=== PATIENT | male | born 1960 | race Caucasian/White ===

== ENCOUNTER → 2019-11-21 08:15 | Day surgery (SDC) | payer MEDICARE, SELFPAY ==
[2019-11-21 08:35] VITALS: BMI 43.7
[2019-11-21 08:39] VITALS: BP 166/94; PULSE 80; RESP 20; TEMP 36.6; O2SAT 95
== END ==
PROVIDERS: Family Provider Internal Medicine; PCP Internal Medicine; Visit Provider Nurse Practitioner Family
DX: C18.2 Malignant neoplasm of ascending colon (principal)
CPT/HCPCS: 96368; 96523; J1642

== ENCOUNTER 2025-04-29 09:45 | Emergency (ER) | payer MEDICARE, SELFPAY ==
[2025-04-29 09:46] VITALS: BP 144/75; PULSE 81; RESP 16; TEMP 36.7; O2SAT 97; BMI 39.1
--- OUTSIDE RECORDS SUMMARY | 2025-04-29 09:50 | XMS_ITS | Encounter Summary ---
Author Organization [facility] Address [address] [place] [address] Care Team Providers Care Archeologist Classical Name Role Phone [facility], External Provider Primary Care Provider +1- [phone] Encounter Details Date Type Department Care Team (Late st Contact Info) Description 09/21/[address] 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
--- OUTSIDE RECORDS SUMMARY | 2025-04-29 09:50 | XMS_ITS | Encounter Summary ---
Author Organization [facility] Address [address] [place] [address] Care Team Providers Care Java Architect Name Role Phone [facility], External Provider Primary Care Provider +1- [phone] Reason for Referral * Outpatient Services (Routine) - Closed Specialty Diagnoses / Procedures Referred By Contkevin t Referred To Contact Cardiology Diagnoses Encounter for loop recorder at end of battery life Procedures CL EVENT RECORDER REMOVAL Avril Delarosa MD [address] [place] [address] Phone: tel: fax: [facility] Electrophysiology Lab [address] [place] [address] Referral ID Status Reason Start Date Expiration Date Visits Re quested Visits Authorized [id number] Closed 12/12/2013 01/12/2015 1 1 PERSON Encounter Details Date Type Department Care Team (Late st Contact Info) Description 12/12/2013 Ancillary Orders [facility] Cardiology- [place] [address] [place] [address] Avril Delarosa MD [address] [place] [address] Encounter for loop recorder at end of battery life (Primary Dx) Social History Tobacco Use Types Packs/Day Years Used Date Smoking Tobacco: Former Cigarettes Q uit: 12/31/2009 Smokeless Tobacco: Never Alcohol Use Standard Drinks/Week Comments Not Asked 0 (1 standard drink = 0.6 oz pur e alcohol) Sex and Gender Information Value Date Recorded Sex Assigned at Not on file 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 After Versed and fentanyl, local anesthetics was given and the incision was made parallel to the old scar. The pocket was opened carefully with acute and dull dissection. Suture was cut and the device was removed from the pocket. Pocket was irrigated with antibiotic solution after hemostasis achieved. Pocket was then closed with two layers. We used 2-0 Vicryl for first layer and staple gun for skin layers. Throughout the procedure, patient's hemodynamics and oxygenation stable. No complication noticed. Totally received 1 mg Versed and 25 mcg fentanyl. No complication noticed. Minimal bleeding. FINAL SUMMARY: Loop recorder removal. SCL/ama - transcribed in Epic - Procedure Note Avril Delarosa MD - 01/10/2014 LOOP RECORDER REMOVAL: DESCRIPTION OF PROCEDURE: After informed consent obtained, the patientsent to the EP lab in a postabsorptive state. After Versed and fentanyl,local anesthetics was given and the incision was made parallel to the oldscar. The pocket was opened carefully with acute and dull dissection.Suture was cut and the device was removed from the pocket. Pocket wasirrigated with antibiotic solution after hemostasis achieved. Pocket wasthen closed with two layers. We used 2-0 Vicryl for first layer andstaple gun for skin layers. Throughout the procedure, patient's hemodynamics and oxygenation stable.No complication noticed. Totally received 1 mg Versed and 25 mcgfentanyl. No complication noticed. Minimal bleeding. FINAL SUMMARY: Loop recorder removal. SCL/ama - transcribed in Epic - us Avril Delarosa MD FLUOROSCOPY ORDERABLES Final Result documented in this encounter Visit Diagnoses Diagnosis Encounter for loop recorder at end of battery life- Primary Unspecified cardiac device in situ (ILR)- Primary Unspecified cardiac device in situ Encounter for loop recorder at end of battery life documented in this encounter Care Teams Java Architect Relationship Specialty Start Date End Date [facility], External Provider [address] [place] [id number] PCP - General Family Practice 01/04/14 documented as of this encounter
--- OUTSIDE RECORDS SUMMARY | 2025-04-29 09:51 | XMS_ITS | Clinical Summary ---
Author Organization [facility] Address [address] [place]: [place] [address] Care Team Providers Care Protozoology Teacher Name Role Phone [facility], External Provider Primary Care Provider +1- [phone] Allergies No known active allergies Active Problems Problem Noted Date Diagnosed Date Unspecified cardiac device in situ (ILR) 012 Hyperlipidemia 07/29/2011 Syncope and collapse 07/29/2011 Family History Medical History Relation Name Comments Heart Disease Father Relation Name Status Comments Father Alive Mother Social History Tobacco Use Types Packs/Day Years Used Date Smoking Tobacco: Former Cigarettes Q uit: 12/31/2009 Smokeless Tobacco: Never Alcohol Use Standard Drinks/Week Comments No 0 (1 standard drink = 0.6 oz pur e alcohol) Sex and Gender Information Value Date Recorded Sex Assigned at Not on file 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 Gender Identity Not on file Sexual Orientation Not on file Plan of Treatment Health Maintenance Due Date Last Done Comments DTAP/TDAP/TD VACCINES (1 - Tdap) 1977 COLORECTAL SCREENING 2003 Colorectal Cancer Screening 2003 FIT-DNA Q 3 years 2003 FIT/FOBT Q 1 year 2003 Flex Sig/CT Colonography Q 5 years 2003 PNEUMOCOCCAL VACCINE 50+ YEARS (1 of 1 - PCV) 02/10/20 08 ZOSTER VACCINE (1 of 2) 02/10/2008 INFLUENZA VACCINE (#1) 2024 RSV VACCINE (60+ or ) (1 - 1-dose 75+ series) 2033 Care Teams Protozoology Teacher Relationship Specialty Start Date End Date [facility], External Provider [address] [place] [id number] PCP - General Family Practice 01/04/14
--- OUTSIDE RECORDS SUMMARY | 2025-04-29 09:51 | XMS_ITS | Encounter Summary ---
Author Organization [facility] Address [address] [place] [address] Care Team Providers Care Nicker Name Role Phone [facility], External Provider Primary Care Provider +1- [phone] Encounter Details Date Type Department Care Team (Late st Contact Info) Description 07/29/2011 Ancillary Orders [facility] Cardiology- [place] [address] [place] [address] Avril Delarosa MD [address] [place] [address] Syncope and collapse Social History Tobacco Use Types Packs/Day Years Used Date Smoking Tobacco: Former Cigarettes Q uit: 12/31/2009 Smokeless Tobacco: Never Alcohol Use Standard Drinks/Week Comments Not Asked 0 (1 standard drink = 0.6 oz pur e alcohol) Sex and Gender Information Value Date Recorded Sex Assigned at Not on file 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 - 08/26/2011 8:25 AM CDT TYPE OF PROCEDURE: Tilt table test. PRE-PROCEDURE DIAGNOSES: Recurrent syncope of unclear etiology. DESCRIPTION OF PROCEDURE: After informed consent obtained the patient sent to the tilt table room for the test. At 10 to 15 minutes 0 degree to establish the baseline. His baseline is about 70 beats per minute sinus rhythm. Blood pressure is about 118/120 systolically and then diastolic is 74 to 78 mmHg. Oxygenation is above 90% throughout the procedure. Immediately after tilt table patient's blood pressure is 113/70, heart rate is 80 beats per minute regular rhythm. No symptom at which time his heart rate gradually increased up to around 90 beats per minute and the blood pressure decreased slightly to about 105 mmHg, diastolic is around 75 to 77 mmHg. At 25 minutes the patient is still asymptomatic and everything stable so we him start to cough and valsalva trying to do the same when he normally would pass out, his heart rate would increase to about 100 to 110 beats per minute but there is no significant drop in blood pressure. At 29 minutes patient still asymptomatic so we put patient back to 0 degree at 30 minutes and patient back to normal blood pressure and heart rate. FINAL SUMMARY: Negative tilt table test. Normal electric cardiovascular response to gravity. /[facility] - transcribed in Epic - Procedure Note Avril Delarosa MD - 08/26/2011 TYPE OF PROCEDURE: Tilt table test. PRE-PROCEDURE DIAGNOSES: Recurrent syncope of unclear etiology. DESCRIPTION OF PROCEDURE: After informed consent obtained the patient sentto the tilt table room for the test. At 10 to 15 minutes 0 degree toestablish the baseline. His baseline is about 70 beats per minute sinusrhythm. Blood pressure is about 118/120 systolically and then diastolicis 74 to 78 mmHg. Oxygenation is above 90% throughout the procedure.Immediately after tilt table patient's blood pressure is 113/70, heartrate is 80 beats per minute regular rhythm. No symptom at which time hisheart rate gradually increased up to around 90 beats per minute and theblood pressure decreased slightly to about 105 mmHg, diastolic is [id number] to 77 mmHg. At 25 minutes the patient is still asymptomatic andeverything stable so we him start to cough and valsalva trying to do thesame when he normally would pass out, his heart rate would increase toabout 100 to 110 beats per minute but there is no significant drop inblood pressure. At 29 minutes patient still asymptomatic so we putpatient back to 0 degree at 30 minutes and patient back to normal bloodpressure and heart rate. FINAL SUMMARY: Negative tilt table test. Normal electric cardiovascularresponse to gravity. /[facility] - transcribed in Epic - us Avril Delarosa MD ELECTROPHYSIOLOGY ORDERABLES Final Result [facility] documented in this encounter Visit Diagnoses Diagnosis Syncope and collapse Syncope and collapse documented in this encounter Care Teams Nicker Relationship Specialty Start Date End Date [facility], External Provider [address] [place] [id number] PCP - General Family Practice 01/04/14 documented as of this encounter
--- OUTSIDE RECORDS SUMMARY | 2025-04-29 09:51 | XMS_ITS | Clinical Summary ---
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 Gender Identity Not on file Sexual Orientation Not on file Occupation Industry Job Start Date Job End Date Not on file Not on file Not on file Not on file Last Filed Vital Signs Vital Sign Reading Time Taken Comments Blood Pressure 137/95 01/04/2014 2:10 PM BUNCH BREAKER Pulse 85 01/04/2014 10:50 AM BUNCH BREAKER Temperature 36.5 C (97.7 F) 01/04/2014 10:50 AM BUNCH BREAKER Respiratory Rate 19 01/04/2014 2:10 PM BUNCH BREAKER Oxygen Saturation 95% 01/04/2014 2:10 PM BUNCH BREAKER Inhaled Oxygen Concentration - - Weight 138.3 kg (304 lb 12.6 oz) 2013 10:50 AM BUNCH BREAKER Height 180.3 cm (5' 11 ) 01/04/2014 10: 50 AM BUNCH BREAKER Body Mass Index 42.51 01/04/2014 10:50 AM BUNCH BREAKER Plan of Treatment Health Maintenance Due Date [...] ) (1 - 1-dose 75+ series) 2033 Advance Directives For more information, please contact: [phone] * Full Code (Latest Code Status on File) Date Activated Date Inactivated Comments 01/04/2014 9:56 AM 01/04/2014 5:11 PM * Full Code Date Activated Date Inactivated Comments 08/25/2011 7:52 AM 08/25/2011 3:58 PM Care Teams Filling Hauler Relationship Specialty Start Date End Date [facility], External Provider [address] [place] [id number] PCP - General Family Practice 01/04/14
--- OUTSIDE RECORDS SUMMARY | 2025-04-29 09:51 | XMS_ITS | Data Portability ---
Author Organization [facility] Address [address] [address] Care Team Providers Care Pocket Setter Name Role Phone NJ BHAKTA Primary Care Provider Unavailabl e Assessment No assessment recorded. Plan of Treatment Reminders Order Date Submit Date Provider Last Modified By Organization Details Last Modified Time Details Appointments RECHECK 15 2024 08:45A Anthony Bhakta MD Not available Not available Not available Lab CMP, serum or plasma [address] Lab, [address], [address], 11/07/2024 14:45:16 HbA1c (hemoglob in A1c), blood 2024 025 [email or web address] [facility] ([facility]), [address] [place] [address], [address], 11/07/2024 14:45:16 CBC w/ auto diff [address] ([facility]), 5 [place], [address], 11/07/2024 14:45:16 lipid panel, blood [address] Lab, [address], [address], 11/07/2024 14:45:16 PSA, serum or plasma 2023 024 [facility], [address] [facility] [address], [address] [place], [address], 06/14/2024 03:50:26 lipid panel, blood 2023 024 [facility] Lab, [address] [facility], [address], [place], [address], 06/13/2024 09:57:48 HbA1c (hemoglob in A1c), blood 2023 024 [facility] ([facility]), [address] [place], [address], 06/13/2024 09:45:59 CBC 2023 024 Critical access hospital Lab, [address] [facility], [facility] 1, [place], [address], 06/13/2024 09:42:39 HbA1c (hemoglob in A1c), blood [address] ([facility]), [address] [place], [address], 12/13/2023 13:57:17 BMP, serum or plasma [address] Lab, [address] [place] [address], [facility] 1, [place], [address], 12/13/2023 13:57:17 Referral None recorded. Procedures None recorded. Surgeries None recorded. Imaging None recorded. Medication Orders Rybelsus 7 mg tablet 2024 025 [facility]53008, [address], [place], [place], [id number], 11/07/2024 14:45:25 Farxiga 10 mg tablet 2024 025 [facility] #28482, [address], [place], [place], [id number], 11/07/2024 14:45:26 losartan 25 mg tablet 2024 025 [facility] #39222, [address], [place], [place], [id number], 11/07/2024 14:45:26 metformin ER 500 mg tablet,ex tended release 24 hr 2024 025 [facility] #45191, [address], [place], [place], [id number], 11/07/2024 14:45:24 atorvasta tin 20 mg tablet 2024 025 [facility] #77746, [address], [place], [place], [id number], 11/07/2024 14:45:26 cetirizin e 10 mg tablet 2024 025 [facility] #39475, [address], [place], [place], [id number], 11/07/2024 14:45:23 Augmentin 875 mg-125 mg tablet 2023 [facility]24 [id number] [address], [place], [place], [id number], 03/07/2024 13:48:09 Patient TargetsNo targets recorded. Patient Instructions Encounter Date Encounter Id Patient Instructions Last Modified By Organization Details Last Modified Time 12/14/2023 [id number] holidays have sugar slightly higher works on diet weights 261 at home rybelsus has dramatically dropped sugar from previous bp controlled [email or web address] Not available 12/14/2023 09:13:19 06/13/2024 [id number] lipids, a1c, psa missed; renal function normal watery eyes; will try antihistamine bp slightly high today; encouraged to check more at home [email or web address] Not available 06/13/2024 09:13:58 Reason for Referral None Reported. Results Created Date Observation Date Name Description Value Unit Range Abnormal Flag Note LastModifiedBy Organization Detail LastModifiedTime 12/07/19 24 12/07/2023 BMP (MALE ) glucose 157.0 mg/dL 60.0-9 9.0 high Not Available [facility] [address] [facility] 1, [place], [address], 12/07/2023 11:23:11 12/07/19 24 12/07/2023 BMP (MALE ) BUN (blood urea nitrogen) 21.0 mg/dL 10.0-2 6.0 Not Available [facility] [address] [facility] 1, [place], [address], 12/07/2023 11:23:11 12/07/19 24 12/07/2023 BMP (MALE ) creatinine (serum) 0.7 mg/dL 0.4-1. 5 Not Available [facility] [address] [facility] 1, [place], [address], 12/07/2023 11:23:11 12/07/19 24 12/07/2023 BMP (MALE ) BUN/creatini ne ratio 30.43 ratio Not Available [facility] [address] [facility] 1, [place], [address], 12/07/2023 11:23:11 12/07/19 24 12/07/2023 BMP (MALE ) calcium 9.4 mg/dL 8.4-10 .5 Not Available [facility] [address] [facility] 1, [place], [address], 12/07/2023 11:23:11 12/07/19 24 12/07/2023 BMP (MALE ) sodium 141.0 mmol/ L 136.0- 145.0 Not Available [facility] [address] [facility] 1, [place], [address], 12/07/2023 11:23:11 12/07/19 24 12/07/2023 BMP (MALE ) potassium 4.2 mmol/ L 3.5-5. 1 Not Available [facility] [address] [address], [place], [address], 12/07/2023 11:23:11 12/07/19 24 12/07/2023 BMP (MALE ) chloride 111.0 mmol/ L 98.0-1 10.0 abnormal Not Available [facility] [address] [address], [place], [address], 12/07/2023 11:23:11 12/07/19 24 12/07/2023 BMP (MALE ) C02 25.0 mmol/ L 22.0-3 1.0 Not Available [facility] [address], [address], 12/07/2023 11:23:11 12/07/19 24 12/07/2023 HbA1c (hemo globi n A1c), blood HbA1c 6.6 Not Available [facility] ([facility]) [address] [place], [address], 12/07/2023 08:55:04 06/06/20 24 06/06/2024 CMP (MALE ) glucose 154.0 mg/dL 60.0-9 9.0 high Not Available [facility] [address], [address], 06/06/2024 09:46:17 06/06/20 24 06/06/2024 CMP (MALE ) BUN (blood urea nitrogen) 13.0 mg/dL 10.0-2 6.0 Not Available [facility] [address], [address], 06/06/2024 09:46:17 06/06/20 24 06/06/2024 CMP (MALE ) creatinine (serum) 0.7 mg/dL 0.4-1. 5 Not Available [facility] [address] [facility] 1, [place], [address], 06/06/2024 09:46:17 06/06/20 24 06/06/2024 CMP (MALE ) BUN/creatini ne ratio 20.00 ratio Not Available [facility] [address] [facility] 1, [place], [address], 06/06/2024 09:46:17 06/06/20 24 06/06/2024 CMP (MALE ) eGFR calculated 130.6 Not Available [facility] [address] [facility] 1, [place], [address], 06/06/2024 09:46:17 06/06/20 24 06/06/2024 CMP (MALE ) total protein 7.1 g/dL 6.0-8. 5 Not Available [facility] [address] [facility] 1, [place], [address], 06/06/2024 09:46:17 06/06/20 24 06/06/2024 CMP (MALE ) total bilirubin 0.7 mg/dL 0.2-1. 3 Not Available [facility] [address] [facility] 1, [place], [address], 06/06/2024 09:46:17 06/06/20 24 06/06/2024 CMP (MALE ) albumin 4.3 g/dL 3.5-5. 5 Not Available [facility] [address] [facility] 1, [place], [address], 06/06/2024 09:46:17 06/06/20 24 06/06/2024 CMP (MALE ) globulin 2.8 calc Not Available [facility] [address] [facility] [address] 1, [place], [address], 06/06/2024 09:46:17 06/06/20 24 06/06/2024 CMP (MALE ) AST (SGOT) 19.0 U/L 0.0-46 .0 Not Available [facility] [address] [facility], [place], [address], 06/06/2024 09:46:17 06/06/20 24 06/06/2024 CMP (MALE ) altv (SGPT) 22.0 U/L 13.0-6 9.0 normal Not Available [facility] [address] [facility] 1, [place], [address], 06/06/2024 09:46:17 06/06/20 24 06/06/2024 CMP (MALE ) A/G ratio 1.5 ratio Not Available [facility] [address] [facility] 1, [place], [address], 06/06/2024 09:46:17 06/06/20 24 06/06/2024 CMP (MALE ) ALP phos 79.0 U/L 30.0-1 40.0 normal Not Available [facility] [address] [facility] 1, [place], [address], 06/06/2024 09:46:17 06/06/20 24 06/06/2024 CMP (MALE ) calcium 9.4 mg/dL 8.4-10 .5 Not Available [facility] [address] [facility] 1, [place], [address], 06/06/2024 09:46:17 06/06/20 24 06/06/2024 CMP (MALE ) sodium 139.0 mmol/ L 136.0- 145.0 Not Available [facility] [address] [facility] 1, [place], [address], 06/06/2024 09:46:17 06/06/20 24 06/06/2024 CMP (MALE ) potassium 4.2 mmol/ L 3.5-5. 1 Not Available [facility] [address] [facility] 1, [place], [address], 06/06/2024 09:46:17 06/06/20 24 06/06/2024 CMP (MALE ) chloride 110.0 mmol/ L 98.0-1 10.0 normal Not Available [facility] [address] [facility] 1, [place], [address], 06/06/2024 09:46:17 06/06/20 24 06/06/2024 CMP (MALE ) C02 23.0 mmol/ L 22.0-3 1.0 Not Available [facility] [address] [facility] 1, [place], [address], 06/06/2024 09:46:17 06/06/20 24 06/06/2024 CMP (MALE ) anion gap 6.0 calc Not Available [facility] [address] [facility] 1, [place], [address], 06/06/2024 09:46:17 06/06/20 24 06/06/2024 CMP (MALE ) osmolality 290.0 calc Not Available [facility] [address] [facility] 1, [place], [address], 06/06/2024 09:46:17 06/06/20 24 06/08/2024 ALBUM IN, RANDO M URINE W/CRE ATINI NE creatinine, random urine 56 mg/dL 20-320 normal Not Available [facility] [employer] [address] [address] [place], [address], 06/08/2024 12:53:16 06/06/20 24 06/08/2024 ALBUM IN, RANDO M URINE W/CRE ATINI NE albumin, urine 0.2 mg/dL see note: normal Refer ence Range : Refer ence Range Not estab lishe d Not Available [facility] [address] [address] [place], [address], 06/08/2024 12:53:16 06/06/20 24 06/08/2024 ALBUM IN, RANDO M URINE W/CRE ATINI NE albumin/crea tinine ratio, random urine 4 mg/g_ creat <30 normal The ADA defin es abnor malit ies in album in excre tion as follo ws: Album inuri a Categ ory Resul t (mg/g creat inine ) Mary l to Mildl y incre ased <30 Moder ately incre ased 30-29 9 Sever vandana incre ased > OR = 300 The ADA recom mends that at least two of three speci mens colle cted withi n a 3-6 month perio d be abnor mal befor e consi rohini g a patie nt to be withi n a diagn ostic categ ory. Not Available [facility] [address] [place], [address], 06/08/2024 12:53:16 06/13/20 24 06/13/2024 CBC WBC 9.5 x10 4.5-10 .5 Not Available [facility] [address] [address], [place], [address], 06/13/2024 09:42:39 06/13/20 24 06/13/2024 CBC RBC 5.10 x10 4.30-5 .90 Not Available [facility] 805 [facility] 1, [place], [address], 06/13/2024 09:42:39 06/13/20 24 06/13/2024 CBC HGB 16.0 g/dL 13.5-1 8.0 Not Available [facility] 805 [facility] 1, [place], [address], 06/13/2024 09:42:39 06/13/20 24 06/13/2024 CBC HCT 46.1 % 35.0-6 0.0 Not Available [facility] [address], [place], [address], 06/13/2024 09:42:39 06/13/20 24 06/13/2024 CBC MCV 90.3 fL 80.0-9 9.9 Not Available [facility] [address] [facility] [address] 1, [place], [address], 06/13/2024 09:42:39 06/13/20 24 06/13/2024 CBC MCH 31.3 pg 27.0-3 2.0 Not Available [facility] [address] [facility] 1, [place], [address], 06/13/2024 09:42:39 06/13/20 24 06/13/2024 CBC MCHC 34.6 g/dL 32.0-3 6.0 Not Available [facility] [address] [facility] [address] 1, [place], [address], 06/13/2024 09:42:39 06/13/20 24 06/13/2024 CBC RDW 12.9 % 11.5-1 4.5 Not Available [facility] [address] [facility] 1, [place], [address], 06/13/2024 09:42:39 06/13/20 24 06/13/2024 CBC plt 200.1 x10 150.0- 451.0 Not Available [facility] [address] [facility] [address] [facility] 1, [place], [address], 06/13/2024 09:42:39 06/13/2006/13/2024 CBC lymphocytes % 17.5 % 20.0-5 0.0 low Not Available [facility] [address] [facility] 1, [place], [address], 06/13/2024 09:42:39 08/12/06/13/2024 CBC granulcytes % 72.7 % 30.0-7 0.0 high Not Available [facility] [address] [facility], [place], [address], 06/13/2024 09:42:39 06/13/20 24 06/13/2024 CBC monocytes % 5.6 % 2.0-16 .0 Not Available [facility] [address] [facility], [place], [address], 06/13/2024 09:42:39 06/13/20 24 06/13/2024 CBC granulcytes# 6.9 x10 Not Maria Del Carmen ilable [facility] [address] [address], [place], [address], 06/13/2024 09:42:39 06/13/20 24 06/13/2024 CBC lymphocytes # 1.7 x10 Not Available [facility] [address] [facility], [place], [address], 06/13/2024 09:42:39 06/13/20 24 06/13/2024 CBC monocytes # 0.5 x10 Not Avai lable [facility] [address] [address], [place], [address], 06/13/2024 09:42:39 06/13/2006/13/2024 LIPID PROFI LE (MALE ) cholesterol 190.0 mg/dL 0.0-20 0.0 Not Available [facility] [address] [facility], [place], [address], 06/13/2024 09:57:47 06/13/20 24 06/13/2024 LIPID PROFI LE (MALE ) trig 140.0 mg/dL 0.0-15 0.0 Not Available [facility] 805 [facility] [address], [address], 06/13/2024 09:57:47 06/13/20 24 06/13/2024 LIPID PROFI LE (MALE ) HDL - direct 43.0 mg/dL >40.0 Not Available [facility] [address] [facility] 1, [place], [address], 06/13/2024 09:57:47 06/13/20 24 06/13/2024 LIPID PROFI LE (MALE ) VLDL - direct 28.0 mg/dL Not Available [facility] [address] [facility] 1, [place], [address], 06/13/2024 09:57:47 06/13/20 24 06/13/2024 LIPID PROFI LE (MALE ) LDL - direct 119.0 mg/dL 0.0-13 0.0 Not Available [facility] 805 [facility] 1, [place], [address], 06/13/2024 09:57:47 06/13/20 24 06/14/2024 PSA, TOTAL PSA, total 0.62 NG/mL < or = 4.00 normal The total PSA value from this assay syste m is stand ardiz ed again st the WHO stand [place]. The test resul t will be appro ximat vandana 20% lower when lázaro red to the equim olar- stand ardiz ed total PSA (Miller man Coult er). Lázaro rison of seria l PSA resul ts shoul d be inter prete d with this fact in mind. This test was perfo rmed using the [employer] chemi lumin escen t metho d. Value s obtai merissa from diffe rent assay metho ds canno t be used inter guardado eaissacy . PSA level s, regar dless of value , shoul d not be inter prete d as absol luther evide nce of the prese nce or absen ce of disea se. Not Available [employer] [facility] [address] [address], [place], [address], 06/14/2024 03:50:26 08/12/20 24 06/13/2024 HbA1c (hemo globi n A1c), blood HbA1c 6.2 Not Available [facility] ([facility]) [address] [place], [address], 06/13/2024 09:12:20 Result Notes None recorded. Problems Name Problem SNOMED Code Status Onset Date Resolution Date Notes Provider Name and Address Organization Details Recorded Time Tobacco dependenc e syndrome 49817902 Active 2022 CURRENT SMOKER Kiah Linsey [facility] 4 07:56:17 Chronic obstructi ve pulmonary disease 15085142 Active 2022 COPD (CHRONIC OBSTRUCTIV E PULMONARY DISEASE) Kiahfang [facility] 4 07:56:06 Hypertens cam disorder 61324037 Active 2022 ESSENTIAL HYPERTENSI ON Kiah Linsey [facility] 4 07:56:11 Type 2 diabetes mellitus without complicat ion 478513655 Active 2021 TYPE 2 DIABETES MELLITUS WITHOUT COMPLICATI ON, WITHOUT LONG-TERM CURRENT USE OF INSULIN Kiah Linsey [facility] 4 07:56:26 Watery eye 483368562 Active 2023 CIARA nelson [facility] 4 12:01:08 Diabetes mellitus 18869726 Active 2024 Nj Bhakta MD [address] [place], [address] , [facility] 5 14:37:11 Uncontrol led type 2 diabetes mellitus 885996348 Active 2024 Nj Bhakta MD [address] [place] [address], [address] , [facility] 5 14:37:24 Allergic rhinitis 86054753 Active 2024 Nj Bhakta MD [address] [place] [address], [address] , [facility] 5 14:38:23 Left lower quadrant pain 702362489 Active 2024 Caleb Suazo MD [address] [place] [address], [address] , [facility] 5 10:29:06 Diverticu litis 423082220 Active 2024 Caleb Suazo MD [address] [place] [address], [address] , [facility] 5 10:33:03 Hyperlipi demia 01928851 Active 2022 CIARA GUERRA [facility] 3 12:47:19 Problem Notes None recorded. Medical Equipment None Reported. Allergies No known drug allergies Medications Name Sig Start Date Stop Date Status Note LastModified by Organization Details LastModified Time atorvasta tin 20 mg tablet TAKE 1 TABLET BY MOUTH EVERY DAY 2024 active Not Available Not Available Not Avai lable cetirizin e 10 mg tablet Take 1 tablet every day by oral route. 2024 active Not Available Not Available Not Avai lable metronida zole 500 mg tablet Take 1 tablet every 8 hours by oral route for 7 days. 2024 active Not Available Not Available Not Avai lable Cipro 500 mg tablet Take 1 tablet every 12 hours by oral route for 7 days. 2024 active Not Available Not Available Not Avai lable losartan 25 mg tablet TAKE 1 TABLET BY MOUTH DAILY 2024 active Not Available Not Available Not Avai lable metformin ER 500 mg tablet,ex tended release 24 hr TAKE 2 TABLETS BY MOUTH TWICE DAILY FOR 24 HOURS active Not Available Not Available No t Available loratadin e 10 mg tablet TAKE 1 TABLET BY MOUTH EVERY DAY active Not Available Not Available No t Available amoxicill in 875 mg-potass ium clavulana te 125 mg tablet TAKE 1 TABLET BY MOUTH EVERY 12 HOURS FOR 10 DAYS. 03/07 completed Not Available Not Available Not Available atorvasta tin daily 06/15 completed Recorded 12/17/19 8:34AM by Everett Dejesus DO, Office Visit; Mail Order Quantity : 90 Tablet; Mail Order Days: 90 Days; Refill Quantity : 90; Tablet; Not Available Not Available Not Available sildenafi l as needed 06/23 completed Not Available Not Available Not Available metformin two times daily 06/15 completed Recorded 12/17/19 8:33AM by Everett Dejesus DO, Office Visit; Mail Order Quantity : 360 Tablet; Mail Order Days: 90 Days; Refill Quantity : 360; Tablet; Not Available Not Available Not Available Farxiga 10 mg tablet TAKE 1 TABLET BY MOUTH DAILY 2024 active Not Available Not Available Not Avai lable Farxiga daily 06/15 completed Recorded 12/17/19 8:34AM by Everett Dejesus DO, Office Visit; Mail Order Quantity : 90 Tablet; Mail Order Days: 90 Days; Refill Quantity : 90; Tablet; Not Available Not Available Not Available Rybelsus 7 mg tablet TAKE 1 TABLET BY MOUTH DAILY 2024 active Not Available Not Available Not Avai lable losartan potassium (bulk) daily 06/15 completed Recorded 12/17/19 8:33AM by Everett Dejesus DO, Office Visit; Refill Quantity : 90; Tablet; Not Available Not Available Not Available Vitals Date Recorded Body height Body mass index (BMI) Body weight Oxygen saturation Oxygen saturation in Arterial blood by Pulse oximetry Heart rate Systolic blood pressure Diastolic blood pressure Provider Name and Address Organization Details Last Updated DateTime 5 182.88 cm 37.8 kg/m2 266325. 27 g 96 % 96 % 80 /min 124 mm[Hg] 70 mm[Hg] LOURDES CAO [facility] 5 14:07:02 Date Recorded Body height Body mass index (BMI) Body weight Respiratory rate Heart rate Oxygen saturation Oxygen saturation in Arterial blood by Pulse oximetry Systolic blood pressure Diastolic blood pressure Provider Name and Address Organization Details Last Updated DateTime 4 182.88 cm 36.8 kg/m2 665946. 53 g 18 /min 90 /min 94 % 94 % 140 mm[Hg] 74 mm[Hg] CIARA [facility] 4 09:06:04 Date Recorded Body height Body mass index (BMI) Body weight Oxygen saturation Oxygen saturation in Arterial blood by Pulse oximetry Heart rate Body temperature Systolic blood pressure Diastolic blood pressure Provider Name and Address Organization Details Last Updated DateTime 5 182.88 cm 35.9 kg/m2 144957. 98 g 93 % 93 % 84 /min 98.3 [degF] 147 mm[Hg] 88 mm[Hg] Julianna Gonzaleselroy [facility] 5 10:16:19 Date Recorded Body height Body mass index (BMI) Body weight Respiratory rate Heart rate Oxygen saturation Oxygen saturation in Arterial blood by Pulse oximetry Systolic blood pressure Diastolic blood pressure Provider Name and Address Organization Details Last Updated DateTime 4 182.88 cm 37 kg/m2 831662. 72 g 20 /min 80 /min 94 % 94 % 142 mm[Hg] 70 mm[Hg] CIARA [facility] 4 08:54:48 Social History Question Answer Notes LastModified by Organizat ion Details LastModified Time Tobacco Smoking Status Current Every Day Smoker LOURDES nelson [facility] 11/07/2024 14:09:38 Are You Blind Or Do You Have Difficulty Seeing? No [email or web address] Information not available 06/15/2023 Are You Deaf Or Do You Have Serious Difficulty Hearing? No [email or web address] Information not available 06/15/2023 What Was The Date Of Your Most Recent Tobacco Screening? 04/27/2025 [email or web address] Information not available 04/27/2025 Do You Have Difficulty Walking Or Climbing Stairs? No [email or web address] Information not available 06/15/2023 Sex: Unknown Functional Status Question Answer Note LastModified by Organizat ion Details LastModified Time What is your level of alcohol consumption? None Information not available 11/07/2024 Are you able to walk? [email or web address] Information not available 06/15/2023 Do you have difficulty doing errands alone? No [email or web address] Information not available 06/15/2023 Are you able to care for yourself? Yes [email or web address] Information not available 06/15/2023 Do you have difficulty dressing or bathing? No [email or web address] Information not available 06/15/2023 Mental Status Question Answer Note LastModified by Organization D etails LastModified Time Do you have difficulty concentrating, remembering or making decisions? No [email or web address] Information no t available 06/15/2023 Family History Nothing Reported. Medical History Condition Response Coronary Artery Disease N Gout N Kidney Stones N Hyperthyroidism N Hypothyroidism N Depression N COPD Y Anemia N MRSA exposure N Difficulty Swallowing Y Anxiety Disorder N Diabetes Y Meniere's disease N Obesity N Arthritis N Mental Disorder N Tuberculosis N AIDS/HIV N Congestive Heart Failure (CHF) N Cancer N Stroke N Diverticulitis N Asthma N Reflux/GERD N High Cholesterol Y Liver Disease N Heart Disease N Pulmonary Embolism N Fibromyalgia N Chronic Ear Infections N Hypertension Y Osteoporosis N Kidney Disease N Immunizations Vaccine Type Date Status Note Provider Nam e and Address Organization Details Recorded Time Influenza, MDCK, quadrivalent, PF 08/06/2020 completed Kiah nelson [facility], L[facility]CL[facility]ette 06/01/2024 07:55:55 COVID-19, mRNA, LNP-S, PF, 100 mcg/0.5mL dose or 50 mcg/0.25mL dose 05/29/2021 completed Kiah nelson [facility], [facility] 06/01/2024 07:55:55 COVID-19, mRNA, LNP-S, PF, 100 mcg/0.5mL dose or 50 mcg/0.25mL dose 06/28/2021 completed Kiah nelson [facility], [facility] 06/01/2024 07:55:55 Past Encounters Encounter ID Performer Location Encounter Start Date Encounter Closed Date Diagnosis/Indication Diagnosis SNOMED-CT Code Diagnosis ICD10 Code Diagnosis Note [id number] Everett Dejesus DO [facility] ([facility]) [address] [place] [address] 06/15/2023 09:07:49 06/15/2023 15:12:37 Chronic obstructive pulmonary disease 17016434 J44.9 Type 2 mark betes mellitus without complication 413477711 E11.9 a1c down to 6 with rybelsus; discussed stopping, but he like the decreased weight [id number] Everett Dejesus DO [facility] ([facility]) [address] [place] [phone] 12/07/2023 08:01:40 12/08/2023 11:34:19 Type 2 diabetes mellitus without complication 032801067 E11.9 a1c down to 6 with rybelsus; discussed stopping, but he like the decreased weight [id number] Everett Dejesus DO [facility] ([facility]) [address] [place] [phone] 12/14/2023 09:02:09 12/14/2023 09:19:13 Type 2 diabetes mellitus without complication 717058963 E11.9 Chronic ob structive pulmonary disease 54739116 J44.9 Acute maxi llary sinusitis 85058843 J01.00 [id number] Everett Dejesus DO [facility] ([facility]) [address] [place] [phone] 06/13/2024 08:47:19 06/13/2024 09:15:45 Type 2 diabetes mellitus without complication 797903535 E11.9 Watery eye 612968053 H04 .209 Screening for malignant neoplasm of prostate 795103828 Z12.5 Hypercholesterolemia 136 77912 E78.00 [id number] Nj Bhakta MD [facility] ([facility]) [address] [place] [phone] 11/07/2024 13:46:01 11/08/2024 13:20:34 Diabetes mellitus 24323383 E11.9 Uncontroll ed type 2 diabetes mellitus 467288158 E11.65 much better control. Type 2 mark betes mellitus without complication 917025199 E11.9 Essential hypertension 41595336 I10 Hyperlipidemia 56147133 E78.5 Allergic rhinitis 399620 04 J30.9 Health Concerns Section Related Observation LastModified by Organization Detai ls LastModified Time None Recorded Concern Status LastModified by Organization Details LastModified Time None Recorded Advance Directives Directive None Recorded Payers Insurance Date Sequence Insurance Name Policy Number Policy Onofre Covered Member ID Onofre Member ID Guarantor Name 04/27/2025 1 [id number]/A DVANTAGE - PPO) [id number] Jeffrey Dickey [id number] Jeffrey Dickey Notes Date Note Type Note Provider Name and Address Organization Details Recorded Time 12/14/2023 text/html DiabetesReported bypatient.Duration:chr onic Control:usually well controlled Compliance:compliant with medications; compliant with follow-up visits Everett Dejesus DO [address] [place] [address], [phone], [facility], [place] 12/14/2023 09:14:34 06/13/2024 text/html DiabetesReported bypatient.Duration:chr onic Control:usually well controlled Compliance:compliant with medications; compliant with follow-up visits Everett Dejesus DO [address] [place] [address], [phone], [facility], [place] 06/13/2024 09:15:37 11/07/2024 text/html DiabetesReported bypatient.Duration:chr onic Control:usually well controlled; improved since last visit; treated with diet and oral medications (Metformin, Rybelsus, Farxiga.) Compliance:compliant with medications; compliant with follow-up visits; compliant with diet Self Care:not monitoring home glucose Associated Symptoms:no increased thirst; no increased appetite; no increased urinationNotes:Last HgbA1c in June was 6.2.HyperlipidemiaRepo rted bypatient.Duration:chr onic Control:usually well controlled Adherence to Treatment Plan:takes medications as prescribed Risk Factors:diabetes;hyper tensionNotes:LDL 119 in June.Hypertension IM/FMReported bypatient.Quality:here for check-up Severity:mild Onset/Timing:gradual onset Alleviating Factors:medication Associated Symptoms:no shortness of breath; no palpitations; no headaches; no chest pain Risk Factorsdiabetes Would like to discuss his loratidine medication. Nj Bhakta MD [address] [place] [address], [phone], [facility], [place] 11/07/2024 14:45:48
--- NOTE | 2025-04-29 10:10 | CTR_ITS ---
PROCEDURE INFORMATION: Exam: CT Abdomen And Pelvis With Contrast Exam date and time: 04/29/2025 11:02 AM Age: 65 years old Clinical indication: Abdominal pain; Localized; Left lower quadrant (llq); Prior surgery; Surgery date: 6+ months; Surgery type: Colon 13 removed; Additional info: Llq pain TECHNIQUE: Imaging protocol: Computed tomography of the abdomen and pelvis with contrast. Radiation optimization: All CT scans at this facility use at least one of these dose optimization techniques: automated exposure control; mA and/or kV adjustment per patient size (includes targeted exams where dose is matched to clinical indication); or iterative reconstruction. Contrast material: OMNI 350; Contrast volume: 100 ml; Contrast route: INTRAVENOUS (IV); COMPARISON: US ROR abd aorta aneury scrn 04/24/2022 10:39 AM RADIATION DOSE METRICS: Total DLP (mGy-cm): 1164.42 FINDINGS: Liver: Normal. No mass. Gallbladder and biliary ducts: Normal. No calcified stones. No ductal dilation. Pancreas: Normal. No ductal dilation. Spleen: Normal. No splenomegaly. Adrenal glands: Normal. No mass. Kidneys and ureters: 2 mm right renal calculus without hydronephrosis. Stomach and bowel: Status post right hemicolectomy. There is focal fat stranding or inflammation anterior to the distal descending colon without colonic wall thickening or diverticulosis. Findings are most consistent with epiploic appendagitis. Circumscribed rounded fat is seen anterior to the descending colon in the area of inflammation. Appendix: No evidence of appendicitis. Intraperitoneal space: Unremarkable. No free air. No significant fluid collection. Vasculature: Unremarkable. No abdominal aortic aneurysm. Lymph nodes: Unremarkable. No enlarged lymph nodes. Urinary bladder: Unremarkable as visualized. Reproductive: Unremarkable as visualized. Bones/joints: Unremarkable. No acute fracture. Soft tissues: Unremarkable. CT/CT abdomen pelvis w con* [id number] IMPRESSION: Acute epiploic appendagitis of the distal descending colon.
--- NOTE | 2025-04-29 10:10 | W.ED.ABDPA2 ---
HPI - Abdominal Pain General: Chief Complaint: Abdominal Pain Stated Complaint: pain on lower left side of abdomen Time Seen by Provider: 04/29/25 09:59 Source: patient and family Mode of arrival: ambulatory Limitations: no limitations History of Present Illness: Gentleman made his way to the [facility] from today because of persistent and worsening left lower quadrant pain. He states his pain began on Thursday. He states it came on rather suddenly. He states it was in the same location and has not migrated. He states he had no falls injury or other precipitating events that he is aware. He has not had pain like this previously. He did see primary care clinic on who started him on antibiotics with a clinical diagnosis of diverticulitis. He states has not improved since that time and he was very uncomfortable last night so he has made his way here. He has had a prior colon resection for colon cancer many years ago and had post surgical chemotherapy and has been doing well. He states his not had fever. He states he has not had any nausea vomiting or diarrhea. He has had no blood in his stools in the last few days. He is urinating normally. No prior history of diagnosis of diverticulitis. No prior history of kidney stones. He states the pain is not ripping and tearing. He states it is exacerbated by certain movements but once he is still the pain abates. He denies any significant past medical history of cardiovascular or pulmonary disease. He does take metformin for what sounds like either prediabetes or mild acr-[id number]-[id number] diabetes. Severity: moderate Quality: aching and sharp Radiation: none Migration to: no migration Exacerbating factors: movement Associated Symptoms: Denies chills, dysuria and fever(s) Related Data Home Medications ?Medication ?Instructions ?Recorded ?Confirmed atorvastatin 20 mg tablet (Lipitor) 20 mg PO DAILY 11/21/19 04/29/25 dapagliflozin propanediol 10 mg 10 mg PO DAILY 11/21/19 04/29/25 tablet (Farxiga) losartan 25 mg tablet 25 mg PO DAILY 11/21/19 04/29/25 cetirizine 10 mg tablet 10 mg PO DAILY 04/29/25 04/29/25 ciprofloxacin HCl 500 mg tablet 500 mg PO BID 04/29/25 04/29/25 metformin 500 mg tablet,extended 1,000 mg PO BID 04/29/25 04/29/25 release 24 hr metronidazole 500 mg tablet 500 mg PO Q8H 04/29/25 04/29/25 semaglutide 7 mg tablet (Rybelsus) 7 mg PO DAILY 04/29/25 04/29/25 Previous Rx's ?Medication ?Instructions ?Recorded ketorolac 10 mg tablet 10 mg PO Q8H PRN pain 5 days #14 04/29/25 tabs Allergies Allergy/AdvReac Type Severity Reaction Status Date / Time No Known Allergies Allergy Verified 11/21/19 08:43 Review of Systems Const: Denies: fever(s) or chills Eyes: Reports: change in vision ENMT: Denies: throat pain, odynophagia, nasal discharge or nasal congestion Card: Denies: chest pain, palpitations or irregular heart rhythm Resp: Denies: dyspnea, productive cough or non-productive cough GI: Reports: abdominal pain : Denies: flank pain, difficulty urinating, dysuria or urinary frequency Musc: Denies: neck pain, back pain, extremity pain or extremity swelling Skin/Breast: Denies: rash Neuro: Denies: headache(s), numbness in extremities or weakness in extremities Psych: Denies: anxiety Endo: Denies: polyuria or polydipsia Physical Exam Narrative: EXAM NARRATIVE: Patient appears to be comfortable and alert and interacts appropriately. Const: COMMON NORMALS: no acute distress, patient oriented x3 and alert GENERAL APPEARANCE: cooperative and comfortable NUTRITIONAL APPEARANCE: overweight HENMT: COMMON NORMALS: atraumatic, Normal nasal mucous membranes and turbinates present, moist oral mucous membranes and oropharynx normal HEAD & SCALP: atraumatic NOSE: Normal nasal mucous membranes and turbinates present Eye: COMMON NORMALS: Equal, round and reactive pupils present, EOMs intact bilaterally, conjunctivae normal and no scleral icterus CONJUNCTIVA: Yes conjunctivae normal PUPIL: Yes Equal, round and reactive pupils present Neck/C-Spine: COMMON NORMALS: full ROM and no JVD Chest: COMMONS NORMALS: normal inspection of the chest and normal palpation of entire chest wall Resp: COMMON NORMALS: normal respiratory effort, No use of accessory muscles and clear to auscultation bilaterally AUSCULTATION: clear to auscultation bilaterally Cardio: COMMON NORMALS: no JVD, regular rate, regular rhythm, No murmurs present (Cardio) and Peripheral pulses 2+ throughout RATE: regular rate RHYTHM: regular rhythm PERIPHERAL PULSES: Peripheral pulses 2+ throughout GI: COMMON NORMALS: Normal to inspection, nondistended, normoactive bowel sounds present OTHER: Patient's has not obese abdomen. He has significant tenderness to palpation over the left lower region of his abdomen. Is exacerbated by any movement of the trunk twisting and turning. There is no skin rashes, ecchymosis or signs of trauma. The tenderness and discomfort does not extend into the left flank but is primarily in the left anterior lateral portion of the abdomen. There is no obvious masses palpated. : COMMON NORMALS: Yes no CVA tenderness BLADDER/KIDNEY EXAM: Yes no CVA tenderness Back/Pelvis: COMMON NORMALS: no CVA tenderness, thoracic and lumbar spine normal to inspection and no thoracic nor lumbar tenderness Extremity: COMMON NORMALS: normal to inspection, full ROM and capillary refill normal Neuro: COMMON NORMALS: patient oriented x3, moves all extremities, no focal motor deficits and no sensory deficits noted SENSORIUM/ORIENTATION: Yes alert Psych: COMMON NORMALS: mental status grossly normal Skin: COMMON NORMALS: no rashes or lesions noted, no wounds and turgor normal GENERAL SKIN EXAM: no rashes or lesions noted and turgor normal Course Reevaluation(s): Reevaluation #1: Patient is doing well no new findings on repeat evaluation. I discussed his condition with both he as well as his spouse and provided them some printout of patient education on the condition. Discussed expected course and reasons to return to the emergency department or seek care otherwise. They both voiced understanding and were appreciative of care. Time: 12:27 Vital Signs: Vital signs: Vital Signs Temperature 98.0 F 04/29/25 09:46 Pulse Rate 81 04/29/25 11:31 Respiratory Rate 16 04/29/25 09:46 Blood Pressure 121/86 04/29/25 11:31 Pulse Oximetry 96 04/29/25 11:31 Oxygen Delivery Me thod Room Air 04/29/25 11:31 MDM - Abdominal Pain Medical Decision Making This patient presented to the emergency department as noted in the HPI. Differential on his presentation given his abdominal pain is certainly diverticulitis as a potential etiology versus other intra-abdominal conditions such as bowel obstruction, other infectious etiology renal colic etc. Less likely to be great vessel disease etc. Certainly also could be abdominal wall strain. Imaging was obtained as well as screening laboratories. Laboratories are all reassuring with exception of he has glycosuria but that is consistent with his known diagnosis of diabetes. His serum blood sugar random blood sugar was 149 mg percent which will obviously need to be followed up on. His imaging did not reveal any evidence of serious pathology to include bowel obstruction, great vessel disease, diverticulitis with abscess formation etc. but did reveal epiploic appendagitis. The management for this condition is pain control and conservative treatment which I have discussed with the patient and family. Stable at this time to be discharged with return precautions. Lab Data I reviewed the patient's lab results. 04/29/25 10:11 04/29/25 10:11 Labs/Radiology: Radiology Impressions Abdomen/Pelvis CT 04/29/25 10:10 IMPRESSION: Acute epiploic appendagitis of the distal descending colon. Laboratory Results WBC 9.42 10^3/uL (3.29-11.43) 04/29/25 10:11 RBC 4.97 10^6/uL (3.85-5.65) 04/29/25 10:11 Hgb 15.00 g/dL (11.27-16.99) 04/29/25 10:11 Hct 44.7 % (37-53) 04/29/25 10:11 MCV 89.9 fl (82-101) 04/29/25 10:11 MCH 30.2 pg (27-33) 04/29/25 10:11 MCHC 33.6 g/dL (30-55) 04/29/25 10:11 RDW 11.9 % (12.1-15.1) L 04/29/25 10:11 Plt Count 183 10^3/cmm (157-399) 04/29/25 10:11 MPV 10.5 fL (7.4-10.4) H 04/29/25 10:11 Neut % (Auto) 79.9 % 04/29/25 10:11 Lymph % (Auto) 12.0 % 04/29/25 10:11 Mathews % (Auto) 5.5 % 04/29/25 10:11 Eos % (Auto) 1.1 % 04/29/25 10:11 Baso % (Auto) 1.2 % 04/29/25 10:11 Neut # (Auto) 7.53 10^3/uL (1.8-7.7) 04/29/25 10:11 Lymph # (Auto) 1.1 10^3/uL (0.8-4.8) 04/29/25 10:11 Mathews # (Auto) 0.5 10^3/uL (0.2-0.9) 04/29/25 10:11 Eos # (Auto) 0.1 10^3/uL (0.0-0.8) 04/29/25 10:11 Baso # (Auto) 0.1 10^3/uL (0.0-0.1) 04/29/25 10:11 Nucleated RBC % (auto) 0 % 04/29/25 10:11 Nucleated RBCs # 0.0 /100WBC 04/29/25 10:11 Sodium 142 mmol/L (136-145) 04/29/25 10:11 Potassium 4.6 mmol/L (3.5-5.1) 04/29/25 10:11 Chloride 108 mmol/L (98-107) H 04/29/25 10:11 Carbon Dioxide 21 mmol/L (22-29) L 04/29/25 10:11 Anion Gap 17.6 (5-19) 04/29/25 10:11 BUN 11 mg/dL (8-23) 04/29/25 10:11 Creatinine 0.8 mg/dL (0.7-1.2) 04/29/25 10:11 GFR Calculation 96.4 mL/min (90-130) 04/29/25 10:11 Glucose 149 mg/dL (65-115) H 04/29/25 10:11 Calculated Osmolality 296 mOsm/kg (285-295) H 04/29/25 10:11 Calcium 8.8 mg/dL (8.5-10.5) 04/29/25 10:11 Total Bilirubin 0.4 mg/dL (0.15-1.2) 04/29/25 10:11 AST 15 U/L (0-40) 04/29/25 10:11 ALT 17 U/L (0-41) 04/29/25 10:11 Alkaline Phosphatase 92 U/L (40-130) 04/29/25 10:11 Total Protein 6.8 g/dL (6.6-8.7) 04/29/25 10:11 Albumin 3.8 g/dL (3.5-5.2) 04/29/25 10:11 Globulin 3.0 g/dL (1.3-4.6) 04/29/25 10:11 Urine Color Yellow (Yellow) 04/29/25 11:19 Urine Appearance Clear (CLEAR) 04/29/25 11:19 Urine pH 7.0 (5-7) 04/29/25 11:19 Ur Specific [place] 1.070 (1.005-1.030) H 04/29/25 11:19 Urine Protein Negative (Negative) 04/29/25 11:19 Urine Glucose (UA) 3+ (Normal) H 04/29/25 11:19 Urine Ketones Negative (Negative) 04/29/25 11:19 Urine Blood Negative (Negative) 04/29/25 11:19 Urine Nitrate Negative (Negative) 04/29/25 11:19 Urine Bilirubin Negative (Negative) 04/29/25 11:19 Urine Urobilinogen 0.2 mg/dL (Negative) 04/29/25 11:19 Ur Leukocyte Esterase Negative (Negative) 04/29/25 11:19 Urine RBC 0-2 /hpf (0-2) 04/29/25 11:19 Urine WBC 0-5 /hpf (0-5) 04/29/25 11:19 Ur Squamous Epith Cells 0-5 /hpf (0-5) 04/29/25 11:19 Amorphous Sediment Not Reportable 04/29/25 11:19 Urine Bacteria None seen /hpf (NONE) 04/29/25 11:19 Hyaline Casts 0.40 /lpf 04/29/25 11:19 All radiology interpretation(s) finalized by discharge Discharge Plan Discharge Patient Disposition: Home Clinical Impression: Appendicitis epiploica Diabetes Qualifiers: Diabetes mellitus type: other specified (including BORIS) Condition: Stable Prescriptions: New ketorolac 10 mg tablet 10 mg PO Q8H PRN (Reason: pain) 5 Days Qty: 14 0RF No Action atorvastatin [Lipitor] 20 mg Tablet 20 mg PO DAILY losartan 25 mg tablet 25 mg PO DAILY dapagliflozin propanediol [Farxiga] 10 mg tablet 10 mg PO DAILY cetirizine 10 mg tablet 10 mg PO DAILY metronidazole 500 mg tablet 500 mg PO Q8H ciprofloxacin HCl 500 mg tablet 500 mg PO BID metformin 500 mg tablet extended release 24 hr 1,000 mg PO BID Rybelsus 7 mg tablet 7 mg PO DAILY Discharge Orders: Discharge ED (Routine); Ordered 04/29/25 Ordered By: Marlo Littlejohn Referrals: Everett Dejesus DO [Primary Care Provider, Internal Medicine] - 1 week Discharge Diet: Usual diet Discharge Activity: Limit activity as instructed Patient Instructions: Opioid Safety, Pain Management, Patient Portal & Maxime Instructions Activity Restrictions/Additional Instructions: As we discussed you do not have a serious condition but do have inflammation of little appendages on your colon wall. This is not a serious condition but will can be uncomfortable and painful. We have provided a medication to help control the pain. You should try to limit your physical activity to exclude heavy lifting or other activities which cause you to bear down or have to strain for a few days. This condition should improve but if it does not improve and resolve within a week or if it worsens at any time to include increasing pain, fever, vomiting, diarrhea etc. return to this or the nearest emergency department or otherwise follow-up with your regular doctor. 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
[2025-04-29 10:23] LABS: Basophils # 0.1 10^3/uL (0.0-0.1); Basophils % 1.2 %; Eosinophils # 0.1 10^3/uL (0.0-0.8); Eosinophils % 1.1 %; Hematocrit 44.7 % (37-53); Lymphocytes # 1.1 10^3/uL (0.8-4.8); Mean Corpuscular HGB Conc 33.6 g/dL (30-55); Mean Corpuscular Hemoglobin 30.2 pg (27-33); Mean Corpuscular Volume 89.9 fl (82-101); Mean Platelet Volume 10.5 fL (7.4-10.4); Monocytes # 0.5 10^3/uL (0.2-0.9); Monocytes % 5.5 %; Neutrophils # 7.53 10^3/uL (1.8-7.7); Neutrophils % 79.9 %; Nucleated Red Blood Cells % 0 %; Platelet Count 183 10^3/cmm (157-399); Red Blood Count 4.97 10^6/uL (3.85-5.65); Red Cell Distribution Width 11.9 % (12.1-15.1); White Blood Count 9.42 10^3/uL (3.29-11.43)
[2025-04-29 10:36] LABS: Alanine Aminotransferase 17 U/L (0-41); Albumin Level 3.8 g/dL (3.5-5.2); Alkaline Phosphatase 92 U/L (40-130); Aspartate Amino Transferase 15 U/L (0-40); Blood Urea Nitrogen 11 mg/dL (8-23); Calcium 8.8 mg/dL (8.5-10.5); Carbon Dioxide 21 mmol/L (22-29); Chloride 108 mmol/L (98-107); Glomerular Filtration Rate 96.4 mL/min (90-130); Glucose 149 mg/dL (65-115); Osmolality Calculated 296 mOsm/kg (285-295); Sodium 142 mmol/L (136-145); Total Bilirubin 0.4 mg/dL (0.15-1.2); Total Protein 6.8 g/dL (6.6-8.7)
[2025-04-29 10:37] LABS: Anion Gap 17.6 (5-19); Potassium 4.6 mmol/L (3.5-5.1)
[2025-04-29] MEDS: iohexol 350 mg/mL 500 mL Btl (per mL) IV (11:11)
[2025-04-29 11:27] LABS: Bilirubin Urine Negative (Negative); Blood Urine Negative (Negative); Glucose Urine UA 3+ (Normal); Ketones Urine Negative (Negative); Leukocyte Esterase Urine Negative (Negative); Nitrate Urine Negative (Negative); Protein Urine Negative (Negative); Urine Appearance Clear (CLEAR); Urine Color Yellow (Yellow); Urobilinogen Urine 0.2 mg/dL (Negative)
[2025-04-29 11:31] VITALS: BP 121/86; PULSE 81; O2SAT 96
[2025-04-29 11:33] LABS: Add Urine Microscopic? YES; Bacteria Urine None Seen /hpf; RBC Urine 0-2 /hpf (0-2); Squamous Epithelial Cell Urine 0-5 /hpf (0-5); WBC Urine 0-5 /hpf (0-5)
[2025-04-29 11:36] LABS: Add Urine Culture? No
[2025-04-29] MEDS: ketorolac 30 mg/mL INJ 15 MG IVP (12:12)
[2025-04-29 12:57] VITALS: BP 148/85; PULSE 73; O2SAT 98
== END 2025-04-29 12:59 | disposition home or self-care (01) ==
PROVIDERS: Emergency Provider Emergency Medicine; Family Provider Internal Medicine; PCP Internal Medicine
DX: K36 Other appendicitis (principal); E13.9 Other specified diabetes mellitus without complications; Z79.84 Long term (current) use of oral hypoglycemic drugs
CPT/HCPCS: 36415; 74177; 80053; 81001; 85025; 96374; 99285; J1885